=== PATIENT | female | born 1960 | race Hispanic/Latino ===

== ENCOUNTER 2021-02-27 06:10 | Day surgery (SDC) | payer BC ==
[2021-02-27 10:00] VITALS: BP 141/78
== END 2021-02-27 09:50 | disposition home or self-care (01) ==
LOC: OR 06:10
PROVIDERS: ATTEND Obstetrics & Gynecology
DX: N95.0 Postmenopausal bleeding (principal); N25.9 Disorder resulting from impaired renal tubular function, unspecified; D25.9 Leiomyoma of uterus, unspecified; E78.00 Pure hypercholesterolemia, unspecified; K21.9 Gastro-esophageal reflux disease without esophagitis; G47.30 Sleep apnea, unspecified; Z79.82 Long term (current) use of aspirin; Z79.899 Other long term (current) drug therapy; Z98.890 Other specified postprocedural states
CPT/HCPCS: 58561; 88305; J1100; J2250; J2370; J2405; J2704; J3010; J7120